=== PATIENT | female | born 1960 | race African-American/Black ===

== ENCOUNTER 2016-08-30 14:33 | Emergency (ER) | payer SELFPAY ==
[~2016-08-30] VITALS: Ht 154.9 cm; Wt 75.0 kg
[~2016-08-30 14:33] MED LIST: ASPI81CH CHEW; LISI10TA3 PO
[2016-08-30 14:35] VITALS: BP 178/82; PULSE 82; RESP 16; TEMP 97.8; O2SAT 98
[2016-08-30 18:24] VITALS: BP 144/104; PULSE 82; RESP 17; O2SAT 98
[2016-08-30] MEDS ORDERED: CLOT10TR PO (18:26)
--- NOTE | 2016-08-30 18:26 | PD ---
HPI Chief Complaint: ENT Complaint Time Seen by Provider: 18:23 Travel History International Travel<30 days: No Contact w/Intl Traveler<30days: No Traveled to known affect area: No History of Present Illness HPI 56-year-old male presents to emergency Department with complaint of bleeding from her tongue when she brushes her teeth since last night. Reports thick white patches that she noticed in her mouth and on her tongue. Denies fever, vomiting. Denies tooth pain. Denies oral pain. Has not taken any medications or tried any treatments to alleviate her symptoms. Reports smoking crack a week ago on Wednesday. Allergies to amoxicillin. Has no other medical complaints. No other modifying factors or associated signs and symptoms. PFSH Past Medical History Hx Anticoagulant Therapy: No Heart Rhythm Problems: No Cancer: No Cardiovascular Problems: Yes (HTN) High Cholesterol: No Chemotherapy: No Chest Pain: No Congestive Heart Failure: No Cerebrovascular Accident: No Diabetes: No Diminished Hearing: No Endocrine: No Genitourinary: No Hypertension: Yes Immune Disorder: No Musculoskeletal: No Neurologic: Yes Psychiatric: No Respiratory: No Radiation Therapy: No ?: Unknown Menopausal: Yes : 3 Para: 3 Tubal Ligation: Yes Past Surgical History Section: Yes Genitourinary Surgery: Yes Hysterectomy: No Other Surgery: Yes (Tubal ligation, ) Social History 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) Tobacco Use: Yes (1 PPD) Substance Use: Yes (COCAINE) Allergies-Medications (Allergen,Severity, Reaction): Coded Allergies: Amoxicillin (Verified Allergy, Severe, 08/30/16) Reported Meds & Prescriptions Reported Meds & Active Scripts Active Clotrimazole Sandy (Clotrimazole) 10 Mg Troc 10 Mg PO 5 TIMES A DAY 14 Days Aspirin 81 Mg Chew 81 Mg CHEW DAILY Reported Lisinopril 10 Mg Tab 10 Mg PO DAILY Review of Systems Except as stated in HPI: all other systems reviewed are Neg Physical Exam Narrative GENERAL: Well-nourished, well-developed female patient, in no acute distress; afebrile, nontoxic-appearing SKIN: Warm and dry. HEAD: Atraumatic. Normocephalic. No facial edema, erythema, tenderness on palpation. No lymphadenopathy. EYES: Pupils equal and round. No scleral icterus. No injection or drainage. ENT: Mucosa pink and moist. Airway patent. MOUTH: Mucous membranes moist, tongue and insides of both equal mucosa with white patch plaques noted; no bleeding noted. Poor dentition throughout. Partially edentulous. NECK: Trachea midline. No lymphadenopathy. CARDIOVASCULAR: Regular rate. RESPIRATORY: No accessory muscle use. GASTROINTESTINAL: Rounded. MUSCULOSKELETAL: No obvious deformities. No clubbing. No cyanosis. No edema. NEUROLOGICAL: Awake and alert. Oriented 3. No obvious cranial nerve deficits. Motor grossly within normal limits. Normal speech. PSYCHIATRIC: Appropriate mood and affect; insight and judgment normal. Data Data Last Documented VS Vital Signs Date Time Temp Pulse Resp B/P Pulse Ox O2 Delivery O2 Flow Rate FiO2 08/30/16 18:24 82 17 144/104 98 Room Air 08/30/16 14:35 97.8 MDM Medical Decision Making Medical Screen Exam Complete: Yes Emergency Medical Condition: Yes Medical Record Reviewed: Yes Differential Diagnosis Oral herpes, oral thrush, canker sores Narrative Course 56-year-old female physical exam consistent with oral thrush. Clotrimazole troches prescribed for home. Instructed patient to follow up with primary care provider. Patient verbalizes understanding and agreement with treatment plan. Patient is medically cleared and stable for discharge. Discussed reasons to return to the emergency department. Patient agrees with treatment plan. The patients vital signs are stable and the patient is stable for outpatient follow- up and treatment. Patient discharged home, stable and in no acute distress. Diagnosis Primary Impression: Oral thrush Referrals: [facility] Primary Care Physician Patient Instructions: General Instructions, Oral Candidiasis (ED) Additional Instructions: Medication as directed Replace toothbrush in 24-48 hours Follow-up with primary care provider Return to the emergency department immediately. Worsening of symptoms Med/Other Pt SpecificInfo: Prescription(s) given Scripts Clotrimazole Sandy 10 Mg Troc10 Mg PO 5 TIMES A DAY 14 Days Ref 0 Prov:Santa Guadalupe 08/30/16 Disposition: 01 DISCHARGE HOME Condition: Stable Santa Guadalupe Aug 30, 2016 18:26
== END 2016-08-30 18:53 | disposition home or self-care (01) ==
LOC: NEPD 14:33
DX: B37.0 Candidal stomatitis (principal); I10 Essential (primary) hypertension; F17.200 Nicotine dependence, unspecified, uncomplicated; Z79.82 Long term (current) use of aspirin; Z79.899 Other long term (current) drug therapy; Z88.0 Allergy status to penicillin
CPT/HCPCS: 99283